=== PATIENT | male | born 1940 | race Hispanic/Latino ===

== ENCOUNTER 2016-07-03 11:54 | Inpatient (IN) | payer MEDICARE, BC ==
[2016-07-03] MEDS ORDERED: Cefepime IV 2 gm in NS 2 GM/100 ML BAG IVPB STA (12:14)
[2016-07-03] MEDS ORDERED: Vancomycin 1gm in NS 250ml 1 GM/250 ML BAG IVPB STA (12:14)
[2016-07-03] MEDS ORDERED: levoFLOXacin 750 mg in D5W 750 MG/150 ML BAG IVPB STA (12:14)
--- NOTE | 2016-07-03 12:36 | RAD ---
HISTORY: cough COMPARISON: 02/01/2014 FINDINGS: LUNGS: No active pulmonary disease. PLEURA: No significant pleural effusion identified, no pneumothorax apparent. CARDIOVASCULAR: Moderate cardiomegaly OSSEOUS STRUCTURES: Sternal wires VISUALIZED UPPER ABDOMEN: Normal. OTHER FINDINGS: None. IMPRESSION: No active disease.
[2016-07-03 12:38] LABS: ADD MANUAL DIFF? NO
--- NOTE | 2016-07-03 12:40 | ED PDOC ---
Arrival/HPI - General Chief Complaint: Shortness Of Breath Time Seen by Provider: 07/03/16 12:06 Historian: Patient - History of Present Illness Narrative History of Present Illness (Text): 07/03/16 12:25 Be Downing is a 76 year old male, whose past medical history includes COPD, Hypotension, CAD, and pneumonia, who presents to the emergency department complaining of coughing, itchy throat, and chest congestion since yesterday. Patient's states that patient has had these same symptoms multiple times these last few months. Patient went to an urgent care center and was given a Z- geovanna. Patient saw Dr. Jeff Otero, who provided different antibiotics. Both medications brought little relief. Symptoms have been intermittent for a few months but symptoms came back yesterday. Patient notes that he took Tylenol early this morning which brought some relief. At present, patient is febrile and continues to feel congested. Patient denies any pain or any other complaint at this time. Patient's notes that patient's blood pressure is always low at baseline. PMD: Dr. Moura General Counselor: Dr. Lee Time/Duration: 24 hours Symptom Onset: Gradual Symptom Course: Worsening Severity Level: Mild Activities at Onset: Light Context: Home Past Medical History - Provider Review Nursing Documentation Reviewed: Yes - Cardiac Hx Hypertension: Yes - Pulmonary Hx Chronic Obstructive Pulmonary Disease (COPD): Yes - Neurological Hx Neurological Disorder: No Hx Paralysis: No - HEENT Hx HEENT Disorder: No - Renal Hx Renal Disorder: No - Endocrine/Metabolic Hx Diabetes Mellitus Type 2: Yes Other/Comment: Neuropathy - Hematological/Oncological Hx Blood Transfusions: Yes (1986) Hx Blood Transfusion Reaction: No - Integumentary Hx Dermatological Disorder: Yes (LESION LEFT TEMPORAL AREA) - Musculoskeletal/Rheumatological Hx Musculoskeletal Disorders: Yes (LOWER BACK PINCHED NERVE) - Gastrointestinal Hx Gastrointestinal Disorders: No - Genitourinary/Gynecological Hx Prostate Problems: Yes - Psychiatric Hx Psychophysiologic Disorder: No Hx Emotional Abuse: No Hx Physical Abuse: No Hx Substance Use: No - Surgical History Hx Cholecystectomy: Yes Hx Coronary Artery Bypass Graft: Yes Hx Open Heart Surgery: Yes - Anesthesia Hx Anesthesia: Yes - Suicidal Assessment Feels Threatened In Home Enviroment: No Family/Social History - Physician Review Nursing Documentation Reviewed: Yes Family/Social History: No Known Family HX Smoking Status: Never Smoked Hx Alcohol Use: No Hx Substance Use: No Allergies/Home Meds Allergies/Adverse Reactions: Allergies No Known Allergies Allergy (Verified 07/03/16 11:57) Home Medications: Home Meds Medication Instructions Recorded Confirmed Atorvastatin [Lipitor] 80 mg PO QPM 02/01/14 07/03/16 Aspirin [Ecotrin] 81 mg PO DAILY 05/19/15 07/03/16 Atenolol [Tenormin] 1 tab PO HS 05/19/15 07/03/16 Atenolol [Tenormin] 50 mg PO QAM 05/19/15 07/03/16 DULoxetine [Cymbalta] 30 mg PO DAILY 05/19/15 07/03/16 Glimepiride 1 mg PO DAILY PRN 05/19/15 07/03/16 Isosorbide Mononitrate [Imdur] 60 mg PO QAM 05/19/15 07/03/16 Saxagliptin HCl/Metformin HCl 1 tab PO DAILY 05/19/15 07/03/16 [Kombiglyze Xr 2.5-1,000 mg Tab] Telmisartan [Micardis] 80 mg PO QAM 05/19/15 07/03/16 Review of Systems - Physician Review All systems were reviewed & negative as marked: Yes - Review of Systems Constitutional: absent: Night Sweats Eyes: absent: Vision Changes ENT: Sinus Congestion. absent: Hearing Changes Respiratory: Cough Cardiovascular: absent: Chest Pain Gastrointestinal: absent: Abdominal Pain Genitourinary Male: absent: Urinary Output Changes Musculoskeletal: absent: Back Pain, Neck Pain Skin: absent: Rash, Pruritis Neurological: absent: Headache, Dizziness Endocrine: absent: Polyuria Hemo/Lymphatic: absent: Easy Bleeding Psychiatric: absent: Depression Physical Exam - Physical Exam Narrative Physical Exam (Text): Constitutional: No acute distress. Head: Normocephalic. Atraumatic. Eyes: PERRL. ENT: Moist mucous membranes. Neck: Supple. Cardiovascular: Regular rate. Chest: No tenderness. Respiratory: Bibasilar rhonchi. GI: Soft. Nontender. Nondistended. Back: No CVA tenderness. Musculoskeletal: No tenderness or swelling of extremities. Skin: No rash. Neurologic: Alert, no focal deficit. Vital Signs Reviewed: Yes Vital Signs Temp Pulse Resp BP Pulse Ox 07/03/16 14:08 89 18 117/48 L 96 07/03/16 13:36 93 H 18 129/52 L 96 07/03/16 13:00 93 H 22 125/54 L 96 07/03/16 12:35 88 24 121/52 L 93 L 07/03/16 12:18 102.8 F H 87 22 115/45 L 93 L 07/03/16 12:14 20 07/03/16 11:58 100.8 F H 75 22 95/47 L 92 L 07/03/16 11:55 100.8 F H 75 22 95/47 L 92 L Temperature: Febrile Blood Pressure: Hypotensive Pulse: Regular Respiratory Rate: Normal Appearance: Positive for: Well-Appearing, Non-Toxic, Comfortable Pain Distress: None Mental Status: Positive for: Alert and Oriented X 3 Medical Decision Making ED Course and Treatment: Impression: 76 year old male complaining of cough and sinus congestion since yesterday presenting with fever, RR 22, and inital blood pressure 90s/50s although not largely different from usual. Plan: -- EKG -- VBG, Blood Culture -- Urinalysis, Urine Culture -- Labs -- Tylenol, Levaquin, Maxipime, Vancomycin, and IV Fluids -- Reassess and disposition Prior Visits: Notes and results from previous visits were reviewed. Patient came to emergency procedure on 02/01/14 for Chest pain for a few hours prior to arriving that day. Patient was admitted to telemetry for further evaluation. EKG: Ordered, reviewed, and independently interpreted the EKG. Rate: 80 BPM Rhythm: NSR Interpretation: LBBB. No concordant ST elevations. Comparison: No change from previous on 02/02/2014 07/03/16 12:35 Chest X-ray: Creator : Aidan Diaz MD FINDINGS: LUNGS:No active pulmonary disease. PLEURA:No significant pleural effusion identified, no pneumothorax apparent. CARDIOVASCULAR:Moderate cardiomegaly OSSEOUS STRUCTURES:Sternal wires VISUALIZED UPPER ABDOMEN:Normal. OTHER FINDINGS:None. IMPRESSION: No active disease. Lactate 2.8, CODE SEPSIS activated. Patient received 30cc/kg bolus, respiratory antibiotics. Dr. Escobar accepts patient to his service. vice president network hand off given. - Lab Interpretations Lab Results: 07/03/16 12:30 07/03/16 12:30 Lab Results 07/03/16 13:00: Urine Color Yellow, Urine Appearance Clear, Urine pH 6.0, Ur Specific [place] 1.010, Urine Protein Negative, Urine Glucose (UA) >=1000, Urine Ketones Negative, Urine Blood Negative, Urine Nitrate Negative, Urine Bilirubin Negative, Urine Urobilinogen 0.2, Ur Leukocyte Esterase Negative 07/03/16 12:30: Chloride 102, Sodium 135, Potassium 4.7, Carbon Dioxide 25, Anion Gap 13, BUN 24 H, Creatinine 0.9, Est GFR ( Amer) > 60, Est GFR ( Non-Af Amer) > 60, Random Glucose 309 H* D, Calcium 8.7, Phosphorus 2.4 L, Magnesium 1.4 L, Total Bilirubin 0.7, AST 24, ALT 35, Alkaline Phosphatase 78, Total Protein 6.3, Albumin 3.5, Globulin 2.8, Albumin/Globulin Ratio 1.3 07/03/16 12:30: pO2 36, VBG pH 7.31 L, VBG pCO2 52.0, VBG HCO3 26.2, VBG Total CO2 27.8, VBG O2 Sat (Calc) 72.3 H, VBG Base Excess -0.7 L, Chloride 104.0, Glucose 321 H, Lactate 2.4 H, FiO2 21 07/03/16 12:30: PT 10.5, INR 0.97, APTT 22.4 L 07/03/16 12:30: WBC 13.8 H D, RBC 4.18, Hgb 12.5 L, Hct 37.3 L, MCV 89.2, MCH 29.9, MCHC 33.5, RDW 13.2, Plt Count 242, MPV 11.4 H, Gran % 90.0 H, Lymph % ( Auto) 3.6 L, [place] % (Auto) 5.4, Eos % (Auto) 0.9 L, Baso % (Auto) 0.1, Gran # 12.41 H, Lymph # 0.5 L, Mckenzie # 0.8 H, Eos # 0.1, Baso # 0.01 - RAD Interpretation Radiology Orders: 07/03/16 12:14 CHEST PORTABLE [RAD] Stat - Medication Orders Current Medication Orders: Discontinued Medications Acetaminophen (Tylenol 325mg Tab) 650 mg PO STAT STA Stop: 07/03/16 12:35 Last Admin: 07/03/16 12:38 Dose: 650 mg Re-Assess: MAR Pain/Vitals Document 07/03/16 13:38 SRE (Rec: 07/03/16 14:07 SRE [id number]) Pain Reassessment Is This A Pain ReAssessment? Yes Sleep Is patient sleeping during reassessment? No Acetaminophen (Tylenol 325mg Tab) Confirm Administered Dose 650 mg .ROUTE .STK- MED ONE Stop: 07/03/16 12:36 Last Admin: 07/03/16 12:39 Dose: 650 mg Comments: duplicate Levofloxacin/Dextrose (Levaquin 750mg) 750 mg in 150 mls @ 100 mls/hr IVPB STAT STA Stop: 07/03/16 13:43 Last Admin: 07/03/16 13:32 Dose: 100 mls/hr Cefepime HCl (Maxipime 2gm) 2 gm in 100 mls @ 100 mls/hr IVPB STAT STA PRN Reason: Protocol Stop: 07/03/16 13:13 Last Admin: 07/03/16 12:31 Dose: 100 mls/hr Sodium Chloride 2,100 ml/ IV (SUPPLIES) 2,100 mls @ 4,164 mls/hr IV ONCE ONE PRN Reason: 60 ML/KG/HR Stop: 07/03/16 12:15 Last Admin: 07/03/16 12:30 Dose: 4,164 mls/hr Vancomycin HCl (Vancomycin 1gm) 1 gm in 250 mls @ 167 mls/hr IVPB STAT STA PRN Reason: Protocol Stop: 07/03/16 13:43 - Scribe Statement The provider has reviewed the documentation as recorded by the Madina Alba Provider Scribe Attestation: All medical record entries made by the Scribgrazyna were at my direction and personally dictated by me. I have reviewed the chart and agree that the record accurately reflects my personal performance of the history, physical exam, medical decision making, and the department course for this patient. I have also personally directed, reviewed, and agree with the discharge instructions and disposition. Disposition/Present on Arrival - Present on Arrival Any Indicators Present on Arrival: No History of DVT/PE: No History of Uncontrolled Diabetes: No Urinary Catheter: No History of Decub. Ulcer: No History Surgical Site Infection Following: Orthopedic Procedures - Disposition Have Diagnosis and Disposition been Completed?: Yes Diagnosis: Sepsis, Respiratory infection Disposition: HOSPITALIZED Disposition Time: 14:00 Patient Plan: Admission, Telemetry Condition: GUARDED
[2016-07-03 12:48] LABS: VENOUS BLOOD GAS BASE EXCESS -0.7 mmol/L (0.0-2.0); VENOUS BLOOD PH 7.31 (7.32-7.43)
[2016-07-03 12:52] LABS: BASO # 0.01 K/mm3 (0.0-2.0); BASO % 0.1 % (0.0-3.0); EOS # 0.1 (0.0-0.7); EOS % 0.9 % (1.5-5.0); GRAN # 12.41 (1.4-6.5); HEMATOCRIT 37.3 % (42.0-52.0); LYMPH # 0.5 (1.2-3.4); LYMPH % 3.6 % (22.0-35.0); MEAN CELL VOLUME 89.2 fL (80.0-105.0); MEAN CORPUSCULAR HEMOGLOBIN 29.9 pg (25.0-35.0); MEAN CORPUSCULAR HGB CONC 33.5 g/dl (31.0-37.0); MEAN PLATELET VOLUME 11.4 fl (7.0-11.0); MONO # 0.8 (0.1-0.6); MONO % 5.4 % (1.0-6.0); PLATELET COUNT 242 10^3/uL (120.0-450.0); RED CELL DISTRIBUTION WIDTH 13.2 % (11.5-14.5); WHITE BLOOD COUNT 13.8 10^3/ul (4.5-11.0)
[2016-07-03 12:56] LABS: ALB/GLOB RATIO 1.3 (1.1-1.8); ALKALINE PHOSPHATASE 78 U/L (38-133); ALT/SGPT 35 U/L (7-56); AST/SGOT 24 U/L (15-59); BILIRUBIN,TOTAL 0.7 mg/dL (0.2-1.3); BLOOD UREA NITROGEN 24 mg/dL (7-21); CALCIUM 8.7 mg/dL (8.4-10.5); CARBON DIOXIDE 25 mmol/L (21-33); CHLORIDE 102 mmol/L (98-107); GFR AFRICAN-AMERICAN > 60; MAGNESIUM 1.4 mg/dL (1.7-2.2); PHOSPHOROUS 2.4 mg/dL (2.5-4.5); POTASSIUM 4.7 mmol/L (3.6-5.0); SODIUM 135 mmol/L (132-148); TOTAL PROTEIN 6.3 g/dL (5.8-8.3)
[2016-07-03 12:58] LABS: INR 0.97 (0.93-1.08); PARTIAL THROMBOPLASTIN TIME 22.4 Seconds (23.7-30.8)
[2016-07-03 13:11] LABS: GLUCOSE,RANDOM 309 mg/dL (70-110)
[2016-07-03 13:51] LABS: URINE BILIRUBIN NEGATIVE (NEGATIVE); URINE BLOOD NEGATIVE (NEGATIVE); URINE GLUCOSE (UA) >=1000 mg/dL (NEGATIVE); URINE KETONE NEGATIVE (NEGATIVE); URINE LEUKOCYTE ESTERASE NEGATIVE Leu/uL (NEGATIVE); URINE PROTEIN NEGATIVE mg/dL (<30 mg/dL); URINE UROBILINOGEN 0.2 E.U./dL (<1 E.U./dL)
[2016-07-03 13:52] LABS: URINE APPEARANCE CLEAR (CLEAR); URINE COLOR YELLOW (YELLOW)
[2016-07-03] MEDS ORDERED: Magnesium Sulfate 2 GM in Sodium Chloride 0.9% 100 ML IV ONE (15:25)
[2016-07-03] MEDS ORDERED: Sodium Chloride 0.9% 100 ML IV SCH ×2 (15:30→15:54)
--- NOTE | 2016-07-03 15:38 | CP.PCM.HP ---
<Steph Esqueda - Last Filed: 07/03/16 15:30> History of Present Illness - History of Present Illness History of Present Illness: CC: I have heaves Patient is a 76 y/o male with PMH of CAD s/p 7 stents, htn, NIDDM2, bph and spinal stenosis presenting with dry heaves. Patient states he has been experiencing dry cough for almost a month. Patient went to urgent care and was given zpack with no relief. Patient then went to PMD, had chest x-ray which revealed diffuse infiltration, patient states he was told to continue zpack. Patient states he continued to have dry cough on/off despite the antibiotics, then today while standing on the street, he felt dry heaves, with foamy discharge.. Patient states he felt itchy in his throat yesterday, as if he was about to come up with a cold, and was feeling congested. PT was taking robittusin with some relief. Patient denies fever, chills, n/v/d. Denies abdominal pain, dyurea, hematuria. Admits to chest pain when he coughs, and admits to shortness of breath.. Denies pillow orthopnea. Denies sore throat or ear ache. In the ER, patient had temp of 102, + leukocytosis, lactic acid of 2.4, code sepsis called. Patient was giving ivf, levaquin and sarmiento cultures sent. PMH: As stated above PSH: cardiac stents, and lap silvana Social; former tobacco smoker, denies alcohol, tobacco and illicit drug use. Works as a street day guard, lives with . Allergy: NKDA. Present on Admission - Present on Admission Any Indicators Present on Admission: Yes History of DVT/PE: No History of Uncontrolled Diabetes: No Urinary Catheter: No Decubitus Ulcer Present: No Review of Systems - Review of Systems All systems: reviewed and no additional remarkable complaints except Review of Systems: As mentioned in hpi. - Constitutional Constitutional: As Per HPI - EENT Eyes: As Per HPI Nose/Mouth/Throat: As Per HPI - Cardiovascular Cardiovascular: As Per HPI - Respiratory Respiratory: As Per HPI - Gastrointestinal Gastrointestinal: As Per HPI - Genitourinary Genitourinary: As Per HPI - Musculoskeletal Musculoskeletal: As Per HPI - Integumentary Integumentary: As Per HPI - Neurological Neurological: As Per HPI - Psychiatric Psychiatric: As Per HPI - Endocrine Endocrine: As Per HPI - Hematologic/Lymphatic Hematologic: As Per HPI Past Patient History - Past Medical History & Family History Past Medical History?: Yes - Past Social History Smoking Status: Former Smoker Alcohol: None Drugs: Denies Home Situation {Lives}: With Family - CARDIAC Hx Hypertension: Yes - PULMONARY Hx Chronic Obstructive Pulmonary Disease (COPD): Yes - NEUROLOGICAL Hx Neurological Disorder: No Hx Paralysis: No - HEENT Hx HEENT Problems: No - RENAL Hx Chronic Kidney Disease: No - ENDOCRINE/METABOLIC Hx Diabetes Mellitus Type 2: Yes Other/Comment: Neuropathy - HEMATOLOGICAL/ONCOLOGICAL Hx Blood Transfusions: Yes (1986) Hx Blood Transfusion Reaction: No - INTEGUMENTARY Hx Dermatological Problems: Yes (LESION LEFT TEMPORAL AREA) - MUSCULOSKELETAL/RHEUMATOLOGICAL Hx Musculoskeletal Disorders: Yes (LOWER BACK PINCHED NERVE) - GASTROINTESTINAL Hx Gastrointestinal Disorders: No - GENITOURINARY/GYNECOLOGICAL Hx Prostate Problems: Yes - PSYCHIATRIC Hx Psychophysiologic Disorder: No Hx Emotional Abuse: No Hx Physical Abuse: No Hx Substance Use: No - SURGICAL HISTORY Hx Cholecystectomy: Yes Hx Coronary Artery Bypass Graft: Yes Hx Open Heart Surgery: Yes - ANESTHESIA Hx Anesthesia: Yes Meds Allergies/Adverse Reactions: Allergies Allergy/AdvReac Type Severity Reaction Status Date / Time No Known Allergies Allergy Verified 07/03/16 15:00 Physical Exam - Constitutional Appears: No Acute Distress Additional comments: + diaphoretic. - Head Exam Head Exam: ATRAUMATIC, NORMAL INSPECTION, NORMOCEPHALIC - Eye Exam Eye Exam: EOMI, Normal appearance, PERRL. absent: Scleral icterus - ENT Exam ENT Exam: Mucous Membranes Moist - Neck Exam Neck exam: Positive for: Normal Inspection - Respiratory Exam Respiratory Exam: Clear to Auscultation Bilateral, Rhonchi (at the bases bilaterally.), NORMAL BREATHING PATTERN. absent: Accessory Muscle Use, Chest Wall Tenderness, Decreased Breath Sounds, Prolonged Expiratory Phase, Rales, Wheezes, Respiratory Distress, Stridor - Cardiovascular Exam Cardiovascular Exam: REGULAR RHYTHM, RRR, +S1, +S2. absent: Gallop, Irregular Rhythm, JVD, Rubs, Systolic Murmur - GI/Abdominal Exam GI & Abdominal Exam: Normal Bowel Sounds, Soft. absent: Distended, Firm, Guarding, Rigid, Tenderness - Extremities Exam Extremities exam: Positive for: normal inspection - Back Exam Back exam: NORMAL INSPECTION - Neurological Exam Neurological exam: Alert, Oriented x3 - Psychiatric Exam Psychiatric exam: Normal Affect, Normal Mood - Skin Skin Exam: Diaphoretic, Dry, Intact, Normal Color, Warm Results - Vital Signs Recent Vital Signs: Last Vital Signs Temp 99 F 07/03/16 15:00 Pulse 87 07/03/16 15:00 Resp 24 07/03/16 15:00 BP 132/59 L 07/03/16 15:00 Pulse Ox 95 07/03/16 15:00 - Labs Result Diagrams: 07/03/16 12:30 07/03/16 12:30 Labs: Laboratory Results - last 24 hr 07/03/16 07/03/16 07/03/16 12:30 12:30 12:30 WBC 13.8 H D RBC 4.18 Hgb 12.5 L Hct 37.3 L MCV 89.2 MCH 29.9 MCHC 33.5 RDW 13.2 Plt Count 242 MPV 11.4 H Gran % 90.0 H Lymph % (Auto) 3.6 L [place] % (Auto) 5.4 Eos % (Auto) 0.9 L Baso % (Auto) 0.1 Gran # 12.41 H Lymph # 0.5 L [place] # 0.8 H Eos # 0.1 Baso # 0.01 PT 10.5 INR 0.97 APTT 22.4 L pO2 36 VBG pH 7.31 L VBG pCO2 52.0 VBG HCO3 26.2 VBG Total CO2 27.8 VBG O2 Sat (Calc) 72.3 H VBG Base Excess -0.7 L Chloride 104.0 Glucose 321 H Lactate 2.4 H FiO2 21 Sodium Potassium Carbon Dioxide Anion Gap BUN Creatinine Est GFR ( Amer) Est GFR (Non-Af Amer) Random Glucose Calcium Phosphorus Magnesium Total Bilirubin AST ALT Alkaline Phosphatase Total Protein Albumin Globulin Albumin/Globulin Ratio Urine Color Urine Appearance Urine pH Ur Specific [place] Urine Protein Urine Glucose (UA) Urine Ketones Urine Blood Urine Nitrate Urine Bilirubin Urine Urobilinogen Ur Leukocyte Esterase 07/03/16 07/03/16 12:30 13:00 WBC RBC Hgb Hct MCV MCH MCHC RDW Plt Count MPV Gran % Lymph % (Auto) [place] % (Auto) Eos % (Auto) Baso % (Auto) Gran # Lymph # [place] # Eos # Baso # PT INR APTT pO2 VBG pH VBG pCO2 VBG HCO3 VBG Total CO2 VBG O2 Sat (Calc) VBG Base Excess Chloride 102 Glucose Lactate FiO2 Sodium 135 Potassium 4.7 Carbon Dioxide 25 Anion Gap 13 BUN 24 H Creatinine 0.9 Est GFR ( Amer) > 60 Est GFR (Non-Af Amer) > 60 Random Glucose 309 H* D Calcium 8.7 Phosphorus 2.4 L Magnesium 1.4 L Total Bilirubin 0.7 AST 24 ALT 35 Alkaline Phosphatase 78 Total Protein 6.3 Albumin 3.5 Globulin 2.8 Albumin/Globulin Ratio 1.3 Urine Color Yellow Urine Appearance Clear Urine pH 6.[address] [place] 1.010 Urine Protein Negative Urine Glucose (UA) >=1000 Urine Ketones Negative Urine Blood Negative Urine Nitrate Negative Urine Bilirubin Negative Urine Urobilinogen 0.2 Ur Leukocyte Esterase Negative Assessment & Plan - Assessment and Plan (Free Text) Assessment: Patient is a 76 y/o male with PMH of CAD s/p 7 stents, htn, NIDDM2, bph and spinal stenosis presenting with dry heaves and dry cough for almost a month. Patient is being admitted with sepsis. Plan: 1) Sepsis with CAP as the source - chest x-ray read as no active disease, however there are bilateral almost patchy infiltrations - + leukocytosis, febrile , with lactic acid of 2.4 - will trend lactic acid - will obtain procal, urine legionella, influenza AB, and mycoplasma - bcx and ucx sent - s/p levaquin and vanco in the ED - will continue Levaquin daily - duoneb standing dose and prn - NS@100 cc/hr. - tessalon pearles and robitussin prn - pulm and ID consult - will f/u with ap/lat chest x-ray in the AM 2) Hypophosphatemia and hypomagnesemia - will replete - will continue to monitor 3) CAD with stents - continue Lipitor, atenolol, asa 4) NIDDM - ISS - Carb controlled diet - accu checks ACHS. - hold po meds 5) spinal stenosis - continue duloxetine 6) htn- continue hctz and losartan 7) DVT and gi prophylaxis: protonix, and heparin sc. Patient seen, examined, case discussed with Dr Escobar. - Date & Time Date: 07/03/16 Time: 14:40 <James Escobar - Last Filed: 07/21/16 18:50> Results - Vital Signs Recent Vital Signs: Last Vital Signs Temp 98 F 07/05/16 07:50 Pulse 80 07/05/16 09:21 Resp 18 07/05/16 07:50 BP 146/77 07/05/16 09:21 Pulse Ox 96 07/05/16 07:50 - Labs Result Diagrams: 07/05/16 07:30 07/05/16 07:30 Attending/Attestation - Attestation I have personally seen and examined this patient.: Yes I have fully participated in the care of the patient.: Yes I have reviewed all pertinent clinical information: Yes Notes (Text): 07/21/16 18:50 Medical record note made by the resident after discussion with my direction and input after the patient was personally seen and examined by me. I have reviewed the chart and agree that the record accurately reflects by personal performance of the history, physical exam, data review, and medical decision-making, in the course for the patient. I have also personally directed the plan of care.
[2016-07-03] MEDS ORDERED: Albuterol-Ipratrop 3 mg / 0.5 (3 ml) UD IH PRN (15:42)
[2016-07-03] MEDS: Insulin Lispro (humaLOG) LOW Coverage SC SCH ×2 (17:08→21:57)
[2016-07-03] MEDS ORDERED: Pneumococcal 23-Valent Vaccine IM ONE (17:40)
[2016-07-03 17:41] VITALS: BMI 26.2
[2016-07-03] MEDS: Potassium & Sodium Phosphate PO SCH (17:42)
[2016-07-03 18:40] LABS: VENOUS BLOOD GAS BASE EXCESS 0.2 mmol/L (0.0-2.0); VENOUS BLOOD PH 7.33 (7.32-7.43)
[2016-07-03] MEDS: Sodium Chloride 0.9% 1,000 ML IV SCH (20:00)
[2016-07-03] MEDS: Albuterol-Ipratrop 3 mg / 0.5 (3 ml) UD IH SCH (20:28)
[2016-07-03] MEDS: guaiFENesin DM 100 mg-10 mg/5 ml UD PO PRN (22:05)
[2016-07-04] MEDS: Albuterol-Ipratrop 3 mg / 0.5 (3 ml) UD IH SCH ×7 (00:45→23:08)
[2016-07-04] MEDS: Sodium Chloride 0.9% 1,000 ML IV SCH ×2 (04:42→18:53)
--- NOTE | 2016-07-04 05:06 | PCM.SEPTIC ---
<Milagro Wakefield - Last Filed: 07/04/16 05:04> Sepsis Progress Note - Reassessment Type Date of Evaluation: 07/03/16 Time of Evaluation: 19:20 Reassessment Type: Non-invasive reassessment - Non Invasive Reassessment Were the most recent vital sign reviewed: Yes Vital Sign (Latest): Temp Pulse Resp BP Pulse Ox 99 F 69 18 130/62 95 07/04/16 00:01 07/04/16 02:00 07/04/16 00:01 07/04/16 00:01 07/04/16 00:01 Cardiovascular: Yes: Regular Rate, Rhythm. No: Gallop, Murmur, Friction Rub Respiratory: Yes: Rhonchi. No: Wheezing, Respiratory Distress Capillary Refill: Normal (Less than 2 sec) Skin: Warm, Dry <James Escobar - Last Filed: 07/21/16 18:53> Sepsis Progress Note - Non Invasive Reassessment Vital Sign (Latest): Temp Pulse Resp BP Pulse Ox 98 F 80 18 146/77 96 07/05/16 07:50 07/05/16 09:21 07/05/16 07:50 07/05/16 09:21 07/05/16 07:50 Attending/Attestation - Attestation I have personally seen and examined this patient.: Yes I have fully participated in the care of the patient.: Yes I have reviewed all pertinent clinical information, including history, physical exam and plan: Yes Notes (Text): 07/21/16 18:53 Medical record note made by the resident after discussion with my direction and input after the patient was personally seen and examined by me. I have reviewed the chart and agree that the record accurately reflects by personal performance of the history, physical exam, data review, and medical decision-making, in the course for the patient. I have also personally directed the plan of care.
[2016-07-04] MEDS: Pantoprazole 40 mg EC Tab PO SCH (05:42)
[2016-07-04] MEDS: Cefepime IV 2 gm in NS 2 GM/100 ML BAG IVPB SCH ×3 (06:56→21:55)
[2016-07-04] MEDS: Budesonide 0.5 mg/2 ml Inhal Susp UD IH SCH ×2 (07:43→19:58)
[2016-07-04 07:44] LABS: ADD MANUAL DIFF? NO
[2016-07-04 07:47] LABS: BASO # 0.02 K/mm3 (0.0-2.0); BASO % 0.3 % (0.0-3.0); EOS # 0.2 (0.0-0.7); GRAN # 5.64 (1.4-6.5); GRAN % 71.2 % (50.0-68.0); HEMATOCRIT 36.6 % (42.0-52.0); LYMPH # 1.4 (1.2-3.4); LYMPH % 17.2 % (22.0-35.0); MEAN CELL VOLUME 89.1 fL (80.0-105.0); MEAN CORPUSCULAR HEMOGLOBIN 29.4 pg (25.0-35.0); MEAN CORPUSCULAR HGB CONC 33.1 g/dl (31.0-37.0); MEAN PLATELET VOLUME 11.1 fl (7.0-11.0); MONO # 0.7 (0.1-0.6); MONO % 8.3 % (1.0-6.0); PLATELET COUNT 189 10^3/uL (120.0-450.0); RED CELL DISTRIBUTION WIDTH 13.5 % (11.5-14.5); WHITE BLOOD COUNT 7.9 10^3/ul (4.5-11.0)
[2016-07-04 07:57] LABS: BLOOD UREA NITROGEN 12 mg/dL (7-21); CALCIUM 8.6 mg/dL (8.4-10.5); CARBON DIOXIDE 26 mmol/L (21-33); CHLORIDE 107 mmol/L (95-110); GFR AFRICAN-AMERICAN > 60; GLUCOSE,RANDOM 164 mg/dL (70-110); MAGNESIUM 1.9 mg/dL (1.7-2.2); PHOSPHOROUS 2.7 mg/dL (2.5-4.5); POTASSIUM 3.6 mmol/L (3.6-5.0); SODIUM 139 mmol/L (132-148)
[2016-07-04] MEDS: Vancomycin 1gm in NS 250ml 1 GM/250 ML BAG IVPB SCH ×2 (08:38→18:50)
--- NOTE | 2016-07-04 08:43 | CON ---
DATE: 07/04/2016 PULMONARY CONSULTATION REASON FOR CONSULTATION: Chronic obstructive pulmonary disease. REFERRING PHYSICIAN: James Escobar MD. HISTORY OF PRESENT ILLNESS: The patient is a 76-year-old male with past medical history significant for chronic obstructive pulmonary disease, extensive coronary artery disease, status post multiple stents, hypertension, diabetes mellitus, who presents to [facility] with main complaints of progressive dyspnea on exertion and cough for the past week. The patient is not short of breath at rest. The patient is not coughing up sputum. There is no history of chest pain, coughing up of blood, or chest pain - made worse with deep respirations. The patient did present to the Emergency Room with fevers. No history of chills or infectious exposure. No history of night sweats, weight loss, or appetite change prior to the above events. No history of leg or calf pains. No history of syncope or diaphoresis. No history of recent travel or trauma. REVIEW OF SYSTEMS: The patient did have some nausea and dry heaves at home. No abdominal pain, no diarrhea. No acute urinary symptoms. No new neurological or musculoskeletal complaints. The rest of the review of systems is negative. ALLERGIES: No known allergies. SOCIAL HISTORY: Positive for tobacco, negative for alcohol. FAMILY HISTORY: No inheritable diseases. HOME MEDICATIONS: Include Micardis, Imdur, glimepiride, Cymbalta, Lipitor, Tenormin, Ecotrin. PHYSICAL EXAMINATION: GENERAL: The patient appears comfortable at rest. He is not short of breath. VITAL SIGNS: Temperature is 98.7, pulse 80, respirations 18/20, blood pressure 123/58. Oxygen saturation on nasal cannula is 95%. HEENT: Normocephalic, atraumatic. NECK: No JVD. CARDIOVASCULAR: Systolic ejection murmur at the lower left sternal border. No S3 gallop. LUNGS: Decreased breath sounds at the bases. Mild rhonchi and wheezing are appreciated bilaterally. EXTREMITIES: No clubbing, cyanosis, or edema. Calves are nontender to palpation. GASTROINTESTINAL: Abdomen is soft, nontender, nondistended. Bowel sounds are positive. SKIN: No acute rash. NEUROLOGIC: Limited at the present time. PERTINENT LABORATORY DATA: Chest x-ray was done yesterday as a portable exam. There is no active disease noted. CBC: White count 13.8, hemoglobin 12.5, hematocrit 37.3, platelets of 242. Complete metabolic profile: BUN 24, glucose 309, phosphorus 2.4, magnesium 1.4. The rest of the metabolic profile is within normal limits. Procalcitonin done yesterday - negative, less than 0.05. IMPRESSION: 1. Acute bronchitis. 2. Chronic obstructive pulmonary disease. 3. Sepsis syndrome, rule out viral etiology. 4. Extensive coronary artery disease. 5. Mild anemia. PLAN: The patient presents to [facility] with a 1-week history of worsening pulmonary symptoms. I did review the chest x-ray as above. There is no acute disease noted. A repeat chest x-ray - PA and lateral - has been ordered for this morning. I will check that when feasible. The patient did present to the hospital with fevers. Infectious disease evaluation with Dr. [place] has been ordered. The patient is on antibiotic therapy. On physical exam, the patient is in mild to moderate bronchospasm. I will continue with the current nebulizer treatments and add intravenous steroids this morning. I will also add inhaled Pulmicort. The patient does feel better this morning - compared to the past few mornings. He is clinically improved. Additional pulmonary intervention will be based on the above results, as well as the clinical status of the patient. I will discuss the above with the attending physician this morning. Thank you very much for this pulmonary consultation. Ilia Singh MD cc: [id number] TT: 07/04/2016 08:42:19 Confirmation # [id number] Dictation # [id number] jn TANNER
[2016-07-04] MEDS: Potassium & Sodium Phosphate PO SCH ×2 (09:04→18:53)
[2016-07-04] MEDS: Insulin Lispro (humaLOG) LOW Coverage SC SCH ×4 (09:05→21:58)
[2016-07-04] MEDS: MethylPREDNISolone 40 mg Vial IVP SCH ×2 (09:06→21:19)
--- NOTE | 2016-07-04 09:15 | CP.PCM.PN ---
<Steph Esqueda - Last Filed: 07/04/16 15:33> Subjective - Date & Time of Evaluation Date of Evaluation: 07/04/16 Time of Evaluation: 08:40 - Subjective Subjective: Medicine progress note for Dr Moura and Dr Escobar Patient with no acute events overnight. Denies cp, sob, headache or dizziness. Reports the cough has improved, and he's feeling better overall. Denies fever or chills. Denies n/v/d. Objective - Vital Signs/Intake and Output Vital Signs (last 24 hours): Temp Pulse Resp BP Pulse Ox 98.7 F 84 20 133/57 L 95 07/04/16 06:00 07/04/16 09:05 07/04/16 06:00 07/04/16 09:05 07/04/16 00:01 Intake and Output: 07/04/16 07/04/16 06:59 18:59 Intake Total 1440 Output Total 1000 Balance 440 - Medications Medications: Current Medications Acetaminophen (Tylenol 325mg Tab) 650 mg PO Q4 PRN PRN Reason: Fever >100.4 F Albuterol/Ipratropium (Duoneb 3 Mg/0.5 Mg (3 Ml) Ud) 3 ml IH [id number] [facility] Last Admin: 07/04/16 07:43 Dose: 3 ml Albuterol/Ipratropium (Duoneb 3 Mg/0.5 Mg (3 Ml) Ud) 3 ml IH Q2H PRN PRN Reason: Shortness of Breath Aspirin (Ecotrin) 81 mg PO DAILY [facility] Last Admin: 07/04/16 09:05 Dose: 81 mg Atenolol (Tenormin) 50 mg PO QAM [facility] Last Admin: 07/04/16 09:05 Dose: 50 mg Atenolol (Tenormin) 50 mg PO HS [facility] Last Admin: 07/03/16 22:01 Dose: 50 mg Atorvastatin Calcium (Lipitor) 80 mg PO QPM [facility] Last Admin: 07/03/16 17:51 Dose: 80 mg Benzonatate (Tessalon Perles) 100 mg PO TID [facility] Last Admin: 07/04/16 09:05 Dose: 100 mg Budesonide (Pulmicort Respules) 0.5 mg IH [id number] [facility] Last Admin: 07/04/16 07:43 Dose: 0.5 mg Duloxetine HCl (Cymbalta) 30 mg PO DAILY [facility] Last Admin: 07/04/16 09:05 Dose: 30 mg Guaifenesin/Dextromethorphan (Robitussin Dm) 5 ml PO Q4H PRN PRN Reason: Cough Last Admin: 07/03/16 22:05 Dose: 5 ml Heparin Sodium (Porcine) (Heparin) 5,000 units SC Q8 [facility] PRN Reason: Protocol Last Admin: 07/04/16 05:41 Dose: 5,000 units Hydrochlorothiazide (Microzide) 12.5 mg PO STAT [facility] Last Admin: 07/03/16 17:46 Dose: 12.5 mg Sodium Chloride (Sodium Chloride 0.9%) 1,000 mls @ 100 mls/hr IV .Q10H [facility] Last Admin: 07/04/16 04:42 Dose: 100 mls/hr Cefepime HCl (Maxipime 2gm) 2 gm in 100 mls @ 100 mls/hr IVPB Q8 [facility] PRN Reason: Protocol Stop: 07/09/16 06:46 Last Admin: 07/04/16 06:56 Dose: 100 mls/hr Vancomycin HCl (Vancomycin 1gm) 1 gm in 250 mls @ 167 mls/hr IVPB Q12H [facility] PRN Reason: Protocol Last Admin: 07/04/16 08:38 Dose: 167 mls/hr Insulin Human Lispro (Humalog Low) 0 units SC ACHS [facility] PRN Reason: Protocol Last Admin: 07/04/16 09:05 Dose: 1 units Isosorbide Mononitrate (Imdur) 60 mg PO QAM [facility] Last Admin: 07/04/16 09:04 Dose: 60 mg Losartan Potassium (Cozaar) 50 mg PO STAT [facility] Last Admin: 07/04/16 09:04 Dose: 50 mg Methylprednisolone (Solu-Medrol) 30 mg IVP Q12 [facility] Last Admin: 07/04/16 09:06 Dose: 30 mg Ondansetron HCl (Zofran Inj) 4 mg IVP STAT PRN PRN Reason: Nausea/Vomiting Pantoprazole Sodium (Protonix Ec Tab) 40 mg PO 0630 [facility] Last Admin: 07/04/16 05:42 Dose: 40 mg Potassium Phos/Sodium Phos (Neutra-Phos) 1 pkt PO BID [facility] Stop: 07/05/16 18:01 Last Admin: 07/04/16 09:04 Dose: 1 pkt - Labs Labs: 07/04/16 07:30 07/04/16 07:30 PT 10.5 Seconds (9.9-11.8) 07/03/16 12:30 INR 0.97 (0.93-1.08) 07/03/16 12:30 APTT 22.4 Seconds (23.7-30.8) L 07/03/16 12:30 - Constitutional Appears: No Acute Distress - Head Exam Head Exam: ATRAUMATIC, NORMAL INSPECTION, NORMOCEPHALIC - Eye Exam Eye Exam: Normal appearance. absent: Scleral icterus - ENT Exam ENT Exam: Mucous Membranes Moist - Neck Exam Neck Exam: Normal Inspection - Respiratory Exam Respiratory Exam: Clear to Ausculation Bilateral, NORMAL BREATHING PATTERN. absent: Rales, Rhonchi, Wheezes, Respiratory Distress, Stridor - Cardiovascular Exam Cardiovascular Exam: REGULAR RHYTHM, +S1, +S2. absent: Murmur - GI/Abdominal Exam GI & Abdominal Exam: Soft, Normal Bowel Sounds. absent: Distended, Firm, Guarding, Rigid, Tenderness - Extremities Exam Extremities Exam: Normal Inspection - Back Exam Back Exam: NORMAL INSPECTION - Neurological Exam Neurological Exam: Alert, Awake, Oriented x3 - Psychiatric Exam Psychiatric exam: Normal Affect, Normal Mood - Skin Skin Exam: Dry, Intact, Normal Color, Warm Assessment and Plan - Assessment and Plan (Free Text) Assessment: Patient is a 76 y/o with pmh of CAD s/p 7 stents, htn, NIDDM2, bph and spinal stenosis presented to the ED with dry cough and heaves, and was admitted with sepsis with HAP as the possible source. Plan: 1) Sepsis with HAP as the possible source - CT chest with b/l lower lobe consolidation - wbc trended down, fever resolved, procal low - Lactic acid trended down, will repeat lactic acid this am. - ID and pulm following, rec appreciated - ucx with no growth, bcx pending - will continue cefepime, doxy and vanco - continue duoneb prn and standing dose, and pulmocort. 2) Hypophosphatemia and hypomagnesemia- resolved, will continue to monitor. 3) CAD with stents - continue Lipitor, atenolol, asa 4) NIDDM - ISS - Carb controlled diet - accu checks ACHS. - hold po meds 5) spinal stenosis - continue duloxetine 6) htn- continue hctz and losartan 7) DVT and gi prophylaxis: protonix, and heparin sc. Patient seen, examined, case discussed with Dr Escobar. <James Escobar - Last Filed: 07/21/16 18:56> Objective - Vital Signs/Intake and Output Vital Signs (last 24 hours): Temp Pulse Resp BP Pulse Ox 98 F 80 18 146/77 96 07/05/16 07:50 07/05/16 09:21 07/05/16 07:50 07/05/16 09:21 07/05/16 07:50 - Labs Labs: 07/05/16 07:30 07/05/16 07:30 PT 10.5 Seconds (9.9-11.8) 07/03/16 12:30 INR 0.97 (0.93-1.08) 07/03/16 12:30 APTT 22.4 Seconds (23.7-30.8) L 07/03/16 12:30 Attending/Attestation - Attestation I have personally seen and examined this patient.: Yes I have fully participated in the care of the patient.: Yes I have reviewed all pertinent clinical information, including history, physical exam and plan: Yes Notes (Text): 07/21/16 18:56 Medical record note made by the resident after discussion with my direction and input after the patient was personally seen and examined by me. I have reviewed the chart and agree that the record accurately reflects by personal performance of the history, physical exam, data review, and medical decision-making, in the course for the patient. I have also personally directed the plan of care.
[2016-07-04] MEDS ORDERED: levoFLOXacin 750 mg in D5W 150 ML BAG IVPB SCH (10:00)
[2016-07-04] MEDS ORDERED: Non Formulary Medication (Telmisartan [Micardis] 80 MG) PO SCH (10:00)
--- NOTE | 2016-07-04 10:02 | CT ---
PROCEDURE: CT Chest without contrast HISTORY: rule out pneumonia COMPARISON: 02/01/2014 TECHNIQUE: Contiguous axial images were obtained through the chest without intravenous contrast enhancement. Sagittal and coronal reconstructions were performed. Radiation dose (DLP): 473 mGy-cm. This CT exam was performed using one or more of the following dose reduction techniques: Automated exposure control, adjustment of the mA and/or kV according to patient size, and/or use of iterative reconstruction technique. FINDINGS: LUNGS: Small areas of subsegmental consolidation can be seen in both lung bases. These could represent areas of pneumonia versus atelectasis. MEDIASTINUM: Unremarkable thoracic aorta. No aneurysm. Normal sized heart. Main pulmonary artery unremarkable. No vascular congestion. No lymphadenopathy. PLEURA: No pleural fluid. No pneumothorax. BONES: No fracture. No destructive lesion. Sternal wires are seen UPPER ABDOMEN: Grossly unremarkable. OTHER FINDINGS: None. IMPRESSION: Small areas of subsegmental consolidation can be seen in both lung bases. These could represent areas of pneumonia versus atelectasis.
--- NOTE | 2016-07-04 11:57 | CP.PCM.CON ---
History of Present Illness - History of Present Illness History of Present Illness: 76 year old male with PMH of HTN, DM, CAD S/P PCI, benign prostatic hyperplasia , S/P laparoscopic cholecystectomy, history of spinal stenosis was brought in to [facility] because of nausea and retching, associated with continued shortness of breath and cough with some whitish phlegm. As per patient , he has been having the cough for over a month now and has been treated multiple times with steroids, inhalers and antibiotics (ie. Z-geovanna) with some relief but then reverts back to the dyspnea and cough. The patient denies headache or dizziness, no chest pain, no abdominal pain, no diarrhea, no dysuria , no blurring of vision, no sore throat, no rhinorrhea. In the ED, the patient was noted to have fever with max temp. of 102.8 F. Infectious diseases consult is requested to further evaluate and manage.Allergy: NKDA. Review of Systems - Review of Systems All systems: reviewed and no additional remarkable complaints except (as per HPI ) Past Patient History - Past Medical History & Family History Past Medical History?: Yes - Past Social History Smoking Status: Former Smoker Alcohol: None Drugs: Denies Home Situation {Lives}: With Family - CARDIAC Hx Hypertension: Yes - PULMONARY Hx Chronic Obstructive Pulmonary Disease (COPD): Yes - NEUROLOGICAL Hx Neurological Disorder: No Hx Paralysis: No - HEENT Hx HEENT Problems: No - RENAL Hx Chronic Kidney Disease: No - ENDOCRINE/METABOLIC Hx Diabetes Mellitus Type 2: Yes Other/Comment: Neuropathy - HEMATOLOGICAL/ONCOLOGICAL Hx Blood Transfusions: Yes (1986) Hx Blood Transfusion Reaction: No - INTEGUMENTARY Hx Dermatological Problems: Yes (LESION LEFT TEMPORAL AREA) - MUSCULOSKELETAL/RHEUMATOLOGICAL Hx Musculoskeletal Disorders: Yes (LOWER BACK PINCHED NERVE) - GASTROINTESTINAL Hx Gastrointestinal Disorders: No - GENITOURINARY/GYNECOLOGICAL Hx Prostate Problems: Yes - PSYCHIATRIC Hx Psychophysiologic Disorder: No Hx Emotional Abuse: No Hx Physical Abuse: No Hx Substance Use: No - SURGICAL HISTORY Hx Cholecystectomy: Yes Hx Coronary Artery Bypass Graft: Yes Hx Open Heart Surgery: Yes - ANESTHESIA Hx Anesthesia: Yes Meds Allergies/Adverse Reactions: Allergies Allergy/AdvReac Type Severity Reaction Status Date / Time No Known Allergies Allergy Verified 07/03/16 15:00 - Medications Medications: Current Medications Acetaminophen (Tylenol 325mg Tab) 650 mg PO Q4 PRN PRN Reason: Fever >100.4 F Albuterol/Ipratropium (Duoneb 3 Mg/0.5 Mg (3 Ml) Ud) 3 ml IH [id number] [facility] Last Admin: 07/04/16 04:30 Dose: 3 ml Albuterol/Ipratropium (Duoneb 3 Mg/0.5 Mg (3 Ml) Ud) 3 ml IH Q2H PRN PRN Reason: Shortness of Breath Aspirin (Ecotrin) 81 mg PO DAILY [facility] Last Admin: 07/03/16 17:46 Dose: 81 mg Atenolol (Tenormin) 50 mg PO QAM [facility] Atenolol (Tenormin) 50 mg PO HS [facility] Last Admin: 07/03/16 22:01 Dose: 50 mg Atorvastatin Calcium (Lipitor) 80 mg PO QPM [facility] Last Admin: 07/03/16 17:51 Dose: 80 mg Benzonatate (Tessalon Perles) 100 mg PO TID [facility] Last Admin: 07/03/16 17:43 Dose: 100 mg Budesonide (Pulmicort Respules) 0.5 mg IH [id number] [facility] Duloxetine HCl (Cymbalta) 30 mg PO DAILY [facility] Last Admin: 07/03/16 17:46 Dose: 30 mg Guaifenesin/Dextromethorphan (Robitussin Dm) 5 ml PO Q4H PRN PRN Reason: Cough Last Admin: 07/03/16 22:05 Dose: 5 ml Heparin Sodium (Porcine) (Heparin) 5,000 units SC Q8 [facility] PRN Reason: Protocol Last Admin: 07/04/16 05:41 Dose: 5,000 units Hydrochlorothiazide (Microzide) 12.5 mg PO STAT [facility] Last Admin: 07/03/16 17:46 Dose: 12.5 mg Sodium Chloride (Sodium Chloride 0.9%) 1,000 mls @ 100 mls/hr IV .Q10H [facility] Last Admin: 07/04/16 04:42 Dose: 100 mls/hr Insulin Human Lispro (Humalog Low) 0 units SC ACHS [facility] PRN Reason: Protocol Last Admin: 07/03/16 21:57 Dose: Not Given Isosorbide Mononitrate (Imdur) 60 mg PO QAM [facility] Levofloxacin/Dextrose (Levaquin 750mg) 750 mg IVPB Q24H [facility] Losartan Potassium (Cozaar) 50 mg PO STAT [facility] Methylprednisolone (Solu-Medrol) 30 mg IVP Q12 [facility] Ondansetron HCl (Zofran Inj) 4 mg IVP STAT PRN PRN Reason: Nausea/Vomiting Pantoprazole Sodium (Protonix Ec Tab) 40 mg PO 0630 [facility] Last Admin: 07/04/16 05:42 Dose: 40 mg Potassium Phos/Sodium Phos (Neutra-Phos) 1 pkt PO BID [facility] Stop: 07/05/16 18:01 Last Admin: 07/03/16 17:42 Dose: 1 pkt Physical Exam - Constitutional Appears: Non-toxic, No Acute Distress - Head Exam Head Exam: NORMAL INSPECTION - ENT Exam ENT Exam: Mucous Membranes Moist - Neck Exam Neck exam: Negative for: Lymphadenopathy, Meningismus - Respiratory Exam Respiratory Exam: Decreased Breath Sounds, Rales (some crackles noted on the right lung [place]) - Cardiovascular Exam Cardiovascular Exam: +S1, +S2 - GI/Abdominal Exam GI & Abdominal Exam: Soft. absent: Tenderness Results - Vital Signs Recent Vital Signs: Last Vital Signs Temp 98.7 F 07/04/16 06:00 Pulse 80 07/04/16 06:00 Resp 20 07/04/16 06:00 BP 123/58 L 07/04/16 06:00 Pulse Ox 95 07/04/16 00:01 - Labs Result Diagrams: 07/04/16 07:30 07/04/16 07:30 Labs: Laboratory Results - last 24 hr 07/03/16 07/03/16 07/03/16 14:30 15:10 18:36 pO2 39 VBG pH 7.33 VBG pCO2 51.0 VBG HCO3 26.9 VBG Total CO2 28.5 H VBG O2 Sat (Calc) 77.8 H VBG Base Excess 0.2 VBG Potassium 3.9 Sodium 140.0 Chloride 114.0 H Glucose 184 H Lactate 1.3 FiO2 21.0 Lactic Acid 1.8 Venous Blood Potassium 3.9 Influenza Typ A,B (EIA) Negative for flu a/b Assessment & Plan - Assessment and Plan (Free Text) Plan: Assessment Consider sepsis due to acute bronchitis, R/O healthcare-associated pneumonia ( subsegmental consolidations seen on CT chest) HTN DM CAD S/P PCI benign prostatic hyperplasia S/P laparoscopic cholecystectomy history of spinal stenosis Plan started patient on Vancomycin, Cefepime, Doxycycline pending blood, sputum cx, PCT; reviewed CT chest will monitor clinical response
[2016-07-04] MEDS: guaiFENesin DM 100 mg-10 mg/5 ml UD PO PRN (18:52)
--- NOTE | 2016-07-05 02:06 | CARD ---
APPROVED REPORT EKG Measurement Heart [id number] <Conclusion> Normal sinus rhythm Left bundle branch block Abnormal ECG
[2016-07-05] MEDS: Albuterol-Ipratrop 3 mg / 0.5 (3 ml) UD IH SCH ×3 (05:43→11:21)
[2016-07-05] MEDS: Pantoprazole 40 mg EC Tab PO SCH (05:47)
[2016-07-05] MEDS: Cefepime IV 2 gm in NS 2 GM/100 ML BAG IVPB SCH (05:47)
[2016-07-05] MEDS: Vancomycin 1gm in NS 250ml 1 GM/250 ML BAG IVPB SCH (05:47)
[2016-07-05] MEDS: Sodium Chloride 0.9% 1,000 ML IV SCH (05:48)
[2016-07-05] MEDS: Budesonide 0.5 mg/2 ml Inhal Susp UD IH SCH (07:50)
[2016-07-05 07:51] VITALS: BP 146/77; PULSE 80; RESP 18; TEMP 98; O2SAT 96
[2016-07-05 07:59] LABS: ADD MANUAL DIFF? NO
[2016-07-05 08:00] LABS: GRAN # 8.71 (1.4-6.5); GRAN % 88.1 % (50.0-68.0); HEMATOCRIT 34.3 % (42.0-52.0); LYMPH # 0.7 (1.2-3.4); LYMPH % 6.7 % (22.0-35.0); MEAN CELL VOLUME 89.1 fL (80.0-105.0); MEAN CORPUSCULAR HEMOGLOBIN 30.1 pg (25.0-35.0); MEAN CORPUSCULAR HGB CONC 33.8 g/dl (31.0-37.0); MEAN PLATELET VOLUME 11.1 fl (7.0-11.0); MONO # 0.5 (0.1-0.6); MONO % 5.2 % (1.0-6.0); PLATELET COUNT 181 10^3/uL (120.0-450.0); RED CELL DISTRIBUTION WIDTH 13.2 % (11.5-14.5); WHITE BLOOD COUNT 9.9 10^3/ul (4.5-11.0)
[2016-07-05 08:11] LABS: BLOOD UREA NITROGEN 18 mg/dL (7-21); CALCIUM 8.6 mg/dL (8.4-10.5); CARBON DIOXIDE 23 mmol/L (21-33); CHLORIDE 108 mmol/L (95-110); GFR AFRICAN-AMERICAN > 60; GLUCOSE,RANDOM 236 mg/dL (70-110); MAGNESIUM 1.8 mg/dL (1.7-2.2); PHOSPHOROUS 3.3 mg/dL (2.5-4.5); POTASSIUM 4.6 mmol/L (3.6-5.0); SODIUM 137 mmol/L (132-148)
--- NOTE | 2016-07-05 08:31 | PN ---
DATE: 07/05/2016 SUBJECTIVE: The patient appears very comfortable this morning. He is not short of breath at rest. PHYSICAL EXAMINATION: VITAL SIGNS: Temperature is 97.9, pulse 69, respirations 18, blood pressure 141 /64. Oxygen saturation on nasal cannula is 99%. HEENT: Normocephalic, atraumatic. No JVD. CARDIOVASCULAR: Systolic ejection murmur at the lower left sternal border. No S3 gallop. LUNGS: Improved breath sounds at the bases. Much less rhonchi. No wheezing this morning. EXTREMITIES: No clubbing, cyanosis, or edema. Calves are nontender to palpation. GASTROINTESTINAL: Abdomen is soft, nontender, nondistended. Bowel sounds are positive. SKIN: No acute rash. NEUROLOGIC: Limited at the present time. PERTINENT LABORATORY DATA: CAT scan of the chest was done and reviewed. There are some very small areas of consolidation at both lung bases. These areas could represent atelectasis or true pneumonia. IMPRESSION: 1. Acute bronchitis. 2. Chronic obstructive pulmonary disease. 3. Rule out bibasilar pneumonia. 4. Extensive coronary artery disease. 5. Mild anemia. PLAN: The patient appears very comfortable this morning. He is not short of breath at rest. He states he is feeling much, much better overall. On physical exam, his bronchospasm is significantly less. I will continue with the current nebulizer treatments and decrease the intravenous steroids this morning. I did review the CAT scan of the chest. There are some small consolidations at the lung bases. It is difficult to discern at this point in time -- whether these consolidations represent true pneumonia or not. The patient did have a procalcitonin done on 07/03/2016 -- negative. I would continue with the antibiotic coverage as per infectious disease. Input by Dr. Bennett is noted. Temperatures have fully resolved. The leukocytosis has also fully resolved. Clinical status of the patient is significantly improved -- compared to the initial presentation. I will discuss the above with the attending physician. Ilia Singh MD cc: [id number] TT: 07/05/2016 08:30:33 Confirmation # [id number] Dictation # [id number] en [facility]ANNER
[2016-07-05] MEDS: Insulin Lispro (humaLOG) LOW Coverage SC SCH ×2 (09:22→13:16)
[2016-07-05] MEDS ORDERED: MethylPREDNISolone 40 mg Vial IVP SCH (10:00)
--- NOTE | 2016-07-05 13:30 | CP.PCM.DIS ---
<DheerajSteph - Last Filed: 07/08/16 11:03> Provider - Provider Date of Admission: 07/03/16 14:27 Attending physician: James Escobar MD Primary care physician: James Escobar MD Time Spent in preparation of Discharge (in minutes): 45 Diagnosis - Discharge Diagnosis (1) Sepsis Status: Resolved (2) Acute bronchitis Status: Acute (3) HAP (hospital-acquired pneumonia) Status: Acute (4) HTN (hypertension) Status: Chronic (5) CAD (coronary artery disease) Status: Chronic Hospital Course - Lab Results Lab Results: Most Recent Lab Values WBC 9.9 10^3/ul (4.5-11.0) D 07/05/16 07:30 RBC 3.85 10^6/uL (3.5-6.1) 07/05/16 07:30 Hgb 11.6 gm/dL (14.0-18.0) L 07/05/16 07:30 Hct 34.3 % (42.0-52.0) L 07/05/16 07:30 MCV 89.1 fL (80.0-105.0) 07/05/16 07:30 MCH 30.1 pg (25.0-35.0) 07/05/16 07:30 MCHC 33.8 g/dl (31.0-37.0) 07/05/16 07:30 RDW 13.2 % (11.5-14.5) 07/05/16 07:30 Plt Count 181 10^3/uL (120.0-450.0) 07/05/16 07:30 MPV 11.1 fl (7.0-11.0) H 07/05/16 07:30 Gran % 88.1 % (50.0-68.0) H 07/05/16 07:30 Lymph % (Auto) 6.7 % (22.0-35.0) L 07/05/16 07:30 Stephens % (Auto) 5.2 % (1.0-6.0) 07/05/16 07:30 Eos % (Auto) 0.0 % (1.5-5.0) L 07/05/16 07:30 Baso % (Auto) 0.0 % (0.0-3.0) 07/05/16 07:30 Gran # 8.71 (1.4-6.5) H 07/05/16 07:30 Lymph # 0.7 (1.2-3.4) L 07/05/16 07:30 Stephens # 0.5 (0.1-0.6) 07/05/16 07:30 Eos # 0.0 (0.0-0.7) 07/05/16 07:30 Baso # 0.00 K/mm3 (0.0-2.0) 07/05/16 07:30 PT 10.5 Seconds (9.9-11.8) 07/03/16 12:30 INR 0.97 (0.93-1.08) 07/03/16 12:30 APTT 22.4 Seconds (23.7-30.8) L 07/03/16 12:30 pO2 39 mm/Hg (30-55) 07/03/16 18:36 VBG pH 7.33 (7.32-7.43) 07/03/16 18:36 VBG pCO2 51.0 (40-60) 07/03/16 18:36 VBG HCO3 26.9 mmol/l (21-28) 07/03/16 18:36 VBG Total CO2 28.5 mmol.L (22-28) H 07/03/16 18:36 VBG O2 Sat (Calc) 77.8 % (40-65) H 07/03/16 18:36 VBG Base Excess 0.2 mmol/L (0.0-2.0) 07/03/16 18:36 VBG Potassium 3.9 mmol/L (3.6-5.2) 07/03/16 18:36 Sodium 140.0 mmol/L (132-148) 07/03/16 18:36 Chloride 114.0 mmol/L (98-107) H 07/03/16 18:36 Glucose 184 mg/dl (75-110) H 07/03/16 18:36 Lactate 1.3 mmol/L (0.7-2.1) 07/03/16 18:36 FiO2 21.0 % 07/03/16 18:36 Sodium 137 mmol/L (132-148) 07/05/16 07:30 Potassium 4.6 mmol/L (3.6-5.0) 07/05/16 07:30 Chloride 108 mmol/L (95-110) 07/05/16 07:30 Carbon Dioxide 23 mmol/L (21-33) 07/05/16 07:30 Anion Gap 11 (10-20) 07/05/16 07:30 BUN 18 mg/dL (7-21) 07/05/16 07:30 Creatinine 0.7 mg/dL (0.5-1.4) 07/05/16 07:30 Est GFR ( Amer) > 60 07/05/16 07:30 Est GFR (Non-Af Amer) > 60 07/05/16 07:30 Random Glucose 236 mg/dL (70-110) H 07/05/16 07:30 Lactic Acid 2.0 mmol/L (0.7-2.1) 07/04/16 16:20 Calcium 8.6 mg/dL (8.4-10.5) 07/05/16 07:30 Phosphorus 3.3 mg/dL (2.5-4.5) 07/05/16 07:30 Magnesium 1.8 mg/dL (1.7-2.2) 07/05/16 07:30 Total Bilirubin 0.7 mg/dL (0.2-1.3) 07/03/16 12:30 AST 24 U/L (15-59) 07/03/16 12:30 ALT 35 U/L (7-56) 07/03/16 12:30 Alkaline Phosphatase 78 U/L (38-133) 07/03/16 12:30 Total Protein 6.3 g/dL (5.8-8.3) 07/03/16 12:30 Albumin 3.5 g/dL (3.0-4.8) 07/03/16 12:30 Globulin 2.8 gm/dL 07/03/16 12:30 Albumin/Globulin Ratio 1.3 (1.1-1.8) 07/03/16 12:30 Procalcitonin < 0.05 NG/ML (0.19-0.49) L 07/03/16 12:30 Venous Blood Potassium 3.9 mmol/L (3.6-5.2) 07/03/16 18:36 Urine Color Yellow (YELLOW) 07/03/16 13:00 Urine Appearance Clear (CLEAR) 07/03/16 13:00 Urine pH 6.0 (4.7-8.0) 07/03/16 13:00 Ur Specific [place] 1.010 (1.005-1.035) 07/03/16 13:00 Urine Protein Negative mg/dL (<30 mg/dL) 07/03/16 13:00 Urine Glucose (UA) >=1000 mg/dL (NEGATIVE) 07/03/16 13:00 Urine Ketones Negative mg/dL (NEGATIVE) 07/03/16 13:00 Urine Blood Negative (NEGATIVE) 07/03/16 13:00 Urine Nitrate Negative (NEGATIVE) 07/03/16 13:00 Urine Bilirubin Negative (NEGATIVE) 07/03/16 13:00 Urine Urobilinogen 0.2 E.U./dL (<1 E.U./dL) 07/03/16 13:00 Ur Leukocyte Esterase Negative Luis/uL (NEGATIVE) 07/03/16 13:00 Influenza Typ A,B (EIA) Negative for flu a/b (NEGATIVE) 07/03/16 14:30 Ur L.pneumophila Ag Negative (NEGATIVE) 07/03/16 13:00 - Hospital Course Hospital Course: Patient is a 76 y/o with pmh of CAD s/p 7 stents, htn, NIDDM2, bph and spinal stenosis presented to the ED with dry cough and heaves. Patient had mild leukocytosis, lactic acidosis, Tempmax of 102.8, chest x-ray with infiltration, and CT with consolidation in b/l lung. Code sepsis called, patient was fluid resuscitated, sarmiento cultured, and was started on broad spectrum antibiotics. Patient's lactic acid trended down. Furthermore patient had electrolytes imbalance which was repleted. Patient improved on hospital day 2, and is to be discharged with Levaquin 750 mg for 6 more days. Patient was encouraged to drink plenty of water, and rest for at least 2 more days before returning to work. - Date & Time of H&P Date of H&P: 08/03/16 Time of H&P: 15:30 Discharge Exam - Head Exam Head Exam: ATRAUMATIC, NORMAL INSPECTION, NORMOCEPHALIC - Eye Exam Eye Exam: EOMI, Normal appearance, PERRL. absent: Scleral icterus - ENT Exam ENT Exam: Mucous Membranes Moist - Neck Exam Neck exam: Normal Inspection - Respiratory Exam Respiratory Exam: Clear to PA & Lateral, NORMAL BREATHING PATTERN, UNREMARKABLE. absent: Rales, Rhonchi, Wheezes, Respiratory Distress, Stridor - Cardiovascular Exam Cardiovascular Exam: REGULAR RHYTHM, RRR, +S1, +S2. absent: Systolic Murmur - GI/Abdominal Exam GI & Abdominal Exam: Normal Bowel Sounds, Soft, Unremarkable. absent: Distended , Firm, Rigid, Tenderness - Extremities Exam Extremities exam: normal inspection - Back Exam Back exam: NORMAL INSPECTION - Neurological Exam Neurological exam: Alert, Oriented x3 - Psychiatric Exam Psychiatric exam: Normal Affect, Normal Mood - Skin Skin Exam: Dry, Intact, Normal Color, Warm Discharge Plan - Discharge Medications Prescriptions: levoFLOXacin [Levaquin] 750 mg PO DAILY #5 tab - Follow Up Plan Condition: GUARDED Disposition: HOME/ ROUTINE Patient education suggested?: Yes Instructions: Acute Bronchitis (GEN), Sepsis (ED), Sepsis (GEN) Additional Instructions: FOLLOW UP WITH DR. HENDERSON IN 2 WEEKS. TAKE MEDICATIONS PREVIOUSLY ON AT HOME. ANTIBIOTIC CALLED INTO PHARMACY BY MD. ANY DIFFICULTY BREATHING, FEVER, PRODUCTIVE COUGH REPORT TO MD OR GO TO ER. Referrals: James Escobar MD [Primary Care Provider] - <James Escobar - Last Filed: 07/08/16 16:35> Provider - Provider Date of Admission: 07/03/16 14:27 Attending physician: James Escobar MD Primary care physician: James Escobar MD Hospital Course - Lab Results Lab Results: Micro Results 07/05/16 06:00 Sputum Gram Stain - Final 07/05/16 06:00 Sputum Sputum Culture - Final Yeast Species Most Recent Lab Values WBC 9.9 10^3/ul (4.5-11.0) D 07/05/16 07:30 RBC 3.85 10^6/uL (3.5-6.1) 07/05/16 07:30 Hgb 11.6 gm/dL (14.0-18.0) L 07/05/16 07:30 Hct 34.3 % (42.0-52.0) L 07/05/16 07:30 MCV 89.1 fL (80.0-105.0) 07/05/16 07:30 MCH 30.1 pg (25.0-35.0) 07/05/16 07:30 MCHC 33.8 g/dl (31.0-37.0) 07/05/16 07:30 RDW 13.2 % (11.5-14.5) 07/05/16 07:30 Plt Count 181 10^3/uL (120.0-450.0) 07/05/16 07:30 MPV 11.1 fl (7.0-11.0) H 07/05/16 07:30 Gran % 88.1 % (50.0-68.0) H 07/05/16 07:30 Lymph % (Auto) 6.7 % (22.0-35.0) L 07/05/16 07:30 Stephens % (Auto) 5.2 % (1.0-6.0) 07/05/16 07:30 Eos % (Auto) 0.0 % (1.5-5.0) L 07/05/16 07:30 Baso % (Auto) 0.0 % (0.0-3.0) 07/05/16 07:30 Gran # 8.71 (1.4-6.5) H 07/05/16 07:30 Lymph # 0.7 (1.2-3.4) L 07/05/16 07:30 Stephens # 0.5 (0.1-0.6) 07/05/16 07:30 Eos # 0.0 (0.0-0.7) 07/05/16 07:30 Baso # 0.00 K/mm3 (0.0-2.0) 07/05/16 07:30 PT 10.5 Seconds (9.9-11.8) 07/03/16 12:30 INR 0.97 (0.93-1.08) 07/03/16 12:30 APTT 22.4 Seconds (23.7-30.8) L 07/03/16 12:30 pO2 39 mm/Hg (30-55) 07/03/16 18:36 VBG pH 7.33 (7.32-7.43) 07/03/16 18:36 VBG pCO2 51.0 (40-60) 07/03/16 18:36 VBG HCO3 26.9 mmol/l (21-28) 07/03/16 18:36 VBG Total CO2 28.5 mmol.L (22-28) H 07/03/16 18:36 VBG O2 Sat (Calc) 77.8 % (40-65) H 07/03/16 18:36 VBG Base Excess 0.2 mmol/L (0.0-2.0) 07/03/16 18:36 VBG Potassium 3.9 mmol/L (3.6-5.2) 07/03/16 18:36 Sodium 140.0 mmol/L (132-148) 07/03/16 18:36 Chloride 114.0 mmol/L (98-107) H 07/03/16 18:36 Glucose 184 mg/dl (75-110) H 07/03/16 18:36 Lactate 1.3 mmol/L (0.7-2.1) 07/03/16 18:36 FiO2 21.0 % 07/03/16 18:36 Sodium 137 mmol/L (132-148) 07/05/16 07:30 Potassium 4.6 mmol/L (3.6-5.0) 07/05/16 07:30 Chloride 108 mmol/L (95-110) 07/05/16 07:30 Carbon Dioxide 23 mmol/L (21-33) 07/05/16 07:30 Anion Gap 11 (10-20) 07/05/16 07:30 BUN 18 mg/dL (7-21) 07/05/16 07:30 Creatinine 0.7 mg/dL (0.5-1.4) 07/05/16 07:30 Est GFR ( Amer) > 60 07/05/16 07:30 Est GFR (Non-Af Amer) > 60 07/05/16 07:30 POC Glucose (mg/dL) 247 mg/dL (65-110) H 07/05/16 11:32 Random Glucose 236 mg/dL (70-110) H 07/05/16 07:30 Lactic Acid 2.0 mmol/L (0.7-2.1) 07/04/16 16:20 Calcium 8.6 mg/dL (8.4-10.5) 07/05/16 07:30 Phosphorus 3.3 mg/dL (2.5-4.5) 07/05/16 07:30 Magnesium 1.8 mg/dL (1.7-2.2) 07/05/16 07:30 Total Bilirubin 0.7 mg/dL (0.2-1.3) 07/03/16 12:30 AST 24 U/L (15-59) 07/03/16 12:30 ALT 35 U/L (7-56) 07/03/16 12:30 Alkaline Phosphatase 78 U/L (38-133) 07/03/16 12:30 Total Protein 6.3 g/dL (5.8-8.3) 07/03/16 12:30 Albumin 3.5 g/dL (3.0-4.8) 07/03/16 12:30 Globulin 2.8 gm/dL 07/03/16 12:30 Albumin/Globulin Ratio 1.3 (1.1-1.8) 07/03/16 12:30 Procalcitonin < 0.05 NG/ML (0.19-0.49) L 07/03/16 12:30 Venous Blood Potassium 3.9 mmol/L (3.6-5.2) 07/03/16 18:36 Urine Color Yellow (YELLOW) 07/03/16 13:00 Urine Appearance Clear (CLEAR) 07/03/16 13:00 Urine pH 6.0 (4.7-8.0) 07/03/16 13:00 Ur Specific [place] 1.010 (1.005-1.035) 07/03/16 13:00 Urine Protein Negative mg/dL (<30 mg/dL) 07/03/16 13:00 Urine Glucose (UA) >=1000 mg/dL (NEGATIVE) 07/03/16 13:00 Urine Ketones Negative mg/dL (NEGATIVE) 07/03/16 13:00 Urine Blood Negative (NEGATIVE) 07/03/16 13:00 Urine Nitrate Negative (NEGATIVE) 07/03/16 13:00 Urine Bilirubin Negative (NEGATIVE) 07/03/16 13:00 Urine Urobilinogen 0.2 E.U./dL (<1 E.U./dL) 07/03/16 13:00 Ur Leukocyte Esterase Negative Luis/uL (NEGATIVE) 07/03/16 13:00 Influenza Typ A,B (EIA) Negative for flu a/b (NEGATIVE) 07/03/16 14:30 Ur L.pneumophila Ag Negative (NEGATIVE) 07/03/16 13:00 Mycoplasma pneumon IgG 1.87 (<=0.90) H 07/03/16 15:10 Mycoplasma pneumon IgM 0 U/mL (<770) 07/03/16 15:10 Attending/Attestation - Attestation I have personally seen and examined this patient.: Yes I have fully participated in the care of the patient.: Yes I have reviewed all pertinent clinical information, including history, physical exam and plan: Yes Notes (Text): 07/08/16 16:35 Medical record note made by the resident after discussion with my direction and input after the patient was personally seen and examined by me. I have reviewed the chart and agree that the record accurately reflects by personal performance of the history, physical exam, data review, and medical decision-making, in the course for the patient. I have also personally directed the plan of care.
--- NOTE | 2016-07-05 17:07 | CP.PCM.PN ---
Subjective - Date & Time of Evaluation Date of Evaluation: 07/05/16 Time of Evaluation: 11:05 - Subjective Subjective: Comfortable, not in distress, breathing better, no fevers overnight, no nausea, much improved cough. Objective - Vital Signs/Intake and Output Vital Signs (last 24 hours): Temp Pulse Resp BP Pulse Ox 98 F 80 18 146/77 96 07/05/16 07:50 07/05/16 07:50 07/05/16 07:50 07/05/16 07:50 07/05/16 07:50 Intake and Output: 07/05/16 07/05/16 06:59 18:59 Intake Total 3300 Balance 3300 - Medications Medications: Current Medications Acetaminophen (Tylenol 325mg Tab) 650 mg PO Q4 PRN PRN Reason: Fever >100.4 F Albuterol/Ipratropium (Duoneb 3 Mg/0.5 Mg (3 Ml) Ud) 3 ml IH [id number] PENDING SALE TO [facility] Last Admin: 07/05/16 07:50 Dose: 3 ml Albuterol/Ipratropium (Duoneb 3 Mg/0.5 Mg (3 Ml) Ud) 3 ml IH Q2H PRN PRN Reason: Shortness of Breath Aspirin (Ecotrin) 81 mg PO DAILY PENDING SALE TO [facility] Last Admin: 07/04/16 09:05 Dose: 81 mg Atenolol (Tenormin) 50 mg PO QAM PENDING SALE TO [facility] Last Admin: 07/04/16 09:05 Dose: 50 mg Atenolol (Tenormin) 50 mg PO HS PENDING SALE TO [facility] Last Admin: 07/04/16 21:19 Dose: 50 mg Atorvastatin Calcium (Lipitor) 80 mg PO QPM PENDING SALE TO [facility] Last Admin: 07/04/16 18:52 Dose: 80 mg Benzonatate (Tessalon Perles) 100 mg PO TID PENDING SALE TO [facility] Last Admin: 07/04/16 18:52 Dose: 100 mg Budesonide (Pulmicort Respules) 0.5 mg IH [id number] PENDING SALE TO [facility] Last Admin: 07/05/16 07:50 Dose: 0.5 mg Doxycycline Hyclate (Doryx) 100 mg PO Q12 ARLENE PRN Reason: Protocol Last Admin: 07/04/16 21:16 Dose: 100 mg Duloxetine HCl (Cymbalta) 30 mg PO DAILY PENDING SALE TO [facility] Last Admin: 07/04/16 09:05 Dose: 30 mg Guaifenesin/Dextromethorphan (Robitussin Dm) 5 ml PO Q4H PRN PRN Reason: Cough Last Admin: 07/04/16 18:52 Dose: 5 ml Heparin Sodium (Porcine) (Heparin) 5,000 units SC Q8 ARLENE PRN Reason: Protocol Last Admin: 07/05/16 05:47 Dose: 5,000 units Hydrochlorothiazide (Microzide) 12.5 mg PO STAT PENDING SALE TO [facility] Last Admin: 07/04/16 16:56 Dose: Not Given Cefepime HCl (Maxipime 2gm) 2 gm in 100 mls @ 100 mls/hr IVPB Q8 ARLENE PRN Reason: Protocol Stop: 07/09/16 06:46 Last Admin: 07/05/16 05:47 Dose: 100 mls/hr Insulin Human Lispro (Humalog Low) 0 units SC ACHS ARLENE PRN Reason: Protocol Last Admin: 07/04/16 21:58 Dose: Not Given Isosorbide Mononitrate (Imdur) 60 mg PO QAM PENDING SALE TO [facility] Last Admin: 07/04/16 09:04 Dose: 60 mg Losartan Potassium (Cozaar) 50 mg PO STAT PENDING SALE TO [facility] Last Admin: 07/04/16 09:04 Dose: 50 mg Methylprednisolone (Solu-Medrol) 20 mg IVP Q12 PENDING SALE TO [facility] Ondansetron HCl (Zofran Inj) 4 mg IVP STAT PRN PRN Reason: Nausea/Vomiting Pantoprazole Sodium (Protonix Ec Tab) 40 mg PO 0630 PENDING SALE TO [facility] Last Admin: 07/05/16 05:47 Dose: 40 mg - Labs Labs: 07/05/16 07:30 07/05/16 07:30 PT 10.5 Seconds (9.9-11.8) 07/03/16 12:30 INR 0.97 (0.93-1.08) 07/03/16 12:30 APTT 22.4 Seconds (23.7-30.8) L 07/03/16 12:30 - Constitutional Appears: Non-toxic, No Acute Distress - Head Exam Head Exam: NORMAL INSPECTION - ENT Exam ENT Exam: Mucous Membranes Moist - Neck Exam Neck Exam: absent: Lymphadenopathy, Meningismus - Respiratory Exam Respiratory Exam: Decreased Breath Sounds - Cardiovascular Exam Cardiovascular Exam: +S1, +S2 - GI/Abdominal Exam GI & Abdominal Exam: Soft. absent: Tenderness Assessment and Plan - Assessment and Plan (Free Text) Plan: Assessment Consider sepsis due to acute bronchitis, unlikely healthcare-associated pneumonia even with subsegmental consolidations since PCT is <0.05 HTN DM CAD S/P PCI benign prostatic hyperplasia S/P laparoscopic cholecystectomy history of spinal stenosis Plan on Vancomycin, Cefepime and Doxycycline day 2; can be switched to PO Doxycycline when ready for discharge - discussed with Dr. Singh
== END 2016-07-05 15:00 | disposition home or self-care (01) | DRG 871 ==
LOC: ED 11:54 → ERH 14:27 → 2RNO 15:44 → 3RNO 07-04 14:05
PROVIDERS: ADMIT Internal Medicine; ATTEND Internal Medicine
DX: A41.9 Sepsis, unspecified organism (principal); J18.9 Pneumonia, unspecified organism; J44.0 Chronic obstructive pulmonary disease with (acute) lower respiratory infection; J20.9 Acute bronchitis, unspecified; E11.40 Type 2 diabetes mellitus with diabetic neuropathy, unspecified; D64.9 Anemia, unspecified; I10 Essential (primary) hypertension; I25.10 Atherosclerotic heart disease of native coronary artery without angina pectoris; N40.0 Benign prostatic hyperplasia without lower urinary tract symptoms; E83.42 Hypomagnesemia; M48.00 Spinal stenosis, site unspecified; E83.39 Other disorders of phosphorus metabolism; Y95 Nosocomial condition; Z95.5 Presence of coronary angioplasty implant and graft; Z87.891 Personal history of nicotine dependence; Z79.84 Long term (current) use of oral hypoglycemic drugs; Z79.82 Long term (current) use of aspirin

== ENCOUNTER 2017-05-29 10:16 | Emergency (ER) | payer MEDICARE, BC ==
[2017-05-29 11:01] VITALS: BMI 23.0
--- NOTE | 2017-05-29 12:06 | ED PDOC ---
Arrival/HPI - General Chief Complaint: GI Problem Time Seen by Provider: 05/29/17 10:58 Historian: Patient - History of Present Illness Narrative History of Present Illness (Text): 05/29/17 12:03 A 76 year old male, whose past medical history includes diabetes, hypertension, hyperlipidemia, and cardiac bypass with stents, presents to the emergency department complaining of non-bloody diarrhea for 1 week. Patient notes taking Pepto Bismol, with no relief. He reports 2 episodes of non-bilious non-bloody vomiting this morning, which caused him to come in today for further evaluation. Patient denies any fever, chills, nausea, abdominal pain, back pain , urinary symptoms, rectal bleeding, chest pain, shortness of breath or any other complaints. PMD: Dr. Moura Time/Duration: 1 week Symptom Course: Unchanged Context: Home Past Medical History - Provider Review Nursing Documentation Reviewed: Yes - Cardiac Hx Hypertension: Yes - Pulmonary Hx Chronic Obstructive Pulmonary Disease (COPD): Yes - Neurological Hx Neurological Disorder: No Hx Paralysis: No - HEENT Hx HEENT Disorder: No - Renal Hx Renal Disorder: No - Endocrine/Metabolic Hx Diabetes Mellitus Type 2: Yes Other/Comment: Neuropathy - Hematological/Oncological Hx Blood Transfusions: Yes (1986) Hx Blood Transfusion Reaction: No - Integumentary Hx Dermatological Disorder: Yes (LESION LEFT TEMPORAL AREA) - Musculoskeletal/Rheumatological Hx Musculoskeletal Disorders: Yes (LOWER BACK PINCHED NERVE) - Gastrointestinal Hx Gastrointestinal Disorders: No - Genitourinary/Gynecological Hx Prostate Problems: Yes - Psychiatric Hx Psychophysiologic Disorder: No Hx Emotional Abuse: No Hx Physical Abuse: No Hx Substance Use: No - Surgical History Hx Cholecystectomy: Yes Hx Coronary Artery Bypass Graft: Yes Hx Open Heart Surgery: Yes - Anesthesia Hx Anesthesia: Yes - Suicidal Assessment Feels Threatened In Home Enviroment: No Family/Social History - Physician Review Nursing Documentation Reviewed: Yes Family/Social History: No Known Family HX Smoking Status: Former Smoker Hx Alcohol Use: No Hx Substance Use: No Allergies/Home Meds Allergies/Adverse Reactions: Allergies No Known Allergies Allergy (Verified 05/29/17 10:58) Home Medications: Home Meds Medication Instructions Recorded Confirmed Atorvastatin [Lipitor] 80 mg PO QPM 02/01/14 05/29/17 Aspirin [Ecotrin] 81 mg PO DAILY 05/19/15 05/29/17 Atenolol [Tenormin] 1 tab PO HS 05/19/15 05/29/17 Atenolol [Tenormin] 50 mg PO QAM 05/19/15 05/29/17 DULoxetine [Cymbalta] 30 mg PO DAILY 05/19/15 05/29/17 Glimepiride 1 mg PO DAILY PRN 05/19/15 05/29/17 Isosorbide Mononitrate [Imdur] 60 mg PO QAM 05/19/15 05/29/17 Saxagliptin HCl/Metformin HCl 1 tab PO DAILY 05/19/15 05/29/17 [Kombiglyze Xr 2.5-1,000 mg Tab] Telmisartan [Micardis] 80 mg PO QAM 05/19/15 05/29/17 Review of Systems - Physician Review All systems were reviewed & negative as marked: Yes - Review of Systems Constitutional: absent: Fevers, Night Sweats Respiratory: absent: SOB Cardiovascular: absent: Chest Pain Gastrointestinal: Diarrhea, Vomiting. absent: Abdominal Pain, Nausea, Hematochezia Genitourinary Male: absent: Dysuria, Frequency, Hematuria Musculoskeletal: absent: Back Pain Physical Exam Vital Signs Reviewed: Yes Vital Signs Temp Pulse Resp BP Pulse Ox 05/29/17 14:35 98.4 F 73 19 99 05/29/17 13:19 69 18 115/59 L 96 05/29/17 11:00 97.9 F 73 18 113/54 L 96 Temperature: Afebrile Blood Pressure: Hypotensive Pulse: Regular Respiratory Rate: Normal Appearance: Positive for: Well-Appearing, Non-Toxic, Comfortable Pain Distress: None Mental Status: Positive for: Alert and Oriented X 3 - Systems Exam Head: Present: Atraumatic, Normocephalic Pupils: Present: PERRL Extroacular Muscles: Present: EOMI Conjunctiva: Present: Normal Mouth: Present: Moist Mucous Membranes Neck: Present: Normal Range of Motion Respiratory/Chest: Present: Clear to Auscultation, Good Air Exchange. No: Respiratory Distress, Accessory Muscle Use Cardiovascular: Present: Regular Rate and Rhythm, Normal S1, S2. No: Murmurs Abdomen: No: Tenderness, Distention, Peritoneal Signs, Guarding Back: Present: Normal Inspection Upper Extremity: Present: Normal Inspection. No: Cyanosis, Edema Lower Extremity: Present: Normal Inspection. No: Edema Neurological: Present: GCS=15, CN II-XII Intact, Speech Normal Skin: Present: Warm, Dry, Normal Color. No: Rashes Psychiatric: Present: Alert, Oriented x 3, Normal Insight, Normal Concentration Medical Decision Making ED Course and Treatment: 05/29/17 12:03 Impression: A 76 year old male with diarrhea Differential Diagnosis included but are not limited to: Gastroenteritis Plan: -- Labs -- Reassess and disposition Progress Notes: Patient's lipase mildly elevated. Hydrated with IVF. Patient is tolerating PO fluids. He has no abdmominal pain. One loose stool in ED. He feels comfortable going home and will follow up with his PMD in 1-2days. Advised to return to the ED if symptoms worsen or any other concern. - Lab Interpretations Lab Results: 05/29/17 12:10 05/29/17 12:10 Lab Results 05/29/17 12:10: Sodium 142, Potassium 3.7, Chloride 107, Carbon Dioxide 23, Anion Gap 15, BUN 17, Creatinine 0.7 L, Est GFR ( Amer) > 60, Est GFR ( Non-Af Amer) > 60, Random Glucose 141 H, Calcium 9.4, Total Bilirubin 0.6, AST 29, ALT 36, Alkaline Phosphatase 75, Total Protein 6.3, Albumin 3.8, Globulin 2.5, Albumin/Globulin Ratio 1.5, Lipase 745 H 05/29/17 12:10: WBC 11.5 H, RBC 4.63, Hgb 13.7 L, Hct 40.5 L, MCV 87.5, MCH 29.6 , MCHC 33.8, RDW 14.1, Plt Count 265, MPV 11.5 H, Gran % 79.1 H, Lymph % (Auto) 10.5 L, Webb % (Auto) 8.8 H, Eos % (Auto) 1.4 L, Baso % (Auto) 0.2, Gran # 9.11 H, Lymph # (Auto) 1.2, Webb # (Auto) 1.0 H, Eos # (Auto) 0.2, Baso # (Auto) 0.02 I have reviewed the lab results: Yes - Medication Orders Current Medication Orders: Discontinued Medications Sodium Chloride (Sodium Chloride 0.9%) 1,000 mls @ 999 mls/hr IV .Q1H1M STA Stop: 05/29/17 13:24 Last Admin: 05/29/17 13:41 Dose: 999 mls/hr eMAR Start Stop Document 05/29/17 13:41 [email or web address] (Rec: 05/29/17 13:43 [email or web address]) Intravenous Solution Start Date 05/29/17 Start Time 13:43 End Date 05/29/17 - Scribe Statement The provider has reviewed the documentation as recorded by the Madina Ponce Provider Scribe Attestation: All medical record entries made by the Scribe were at my direction and personally dictated by me. I have reviewed the chart and agree that the record accurately reflects my personal performance of the history, physical exam, medical decision making, and the department course for this patient. I have also personally directed, reviewed, and agree with the discharge instructions and disposition. Disposition/Present on Arrival - Present on Arrival Any Indicators Present on Arrival: No History of DVT/PE: No History of Uncontrolled Diabetes: No Urinary Catheter: No History of Decub. Ulcer: No History Surgical Site Infection Following: None - Disposition Have Diagnosis and Disposition been Completed?: Yes Diagnosis: Gastroenteritis, Pancreatitis Disposition: HOME/ ROUTINE Disposition Time: 14:30 Patient Plan: Discharge Condition: IMPROVED Discharge Instructions (ExitCare): Pancreatitis, Gastroenteritis (ED) Additional Instructions: Ms Downing thank you for letting us take care of you today. Your provider was Dr. Tai. You were treated for Gastroenteritis, Pancreatis. The emergency medical care you received today was directed at your acute symptoms. If you were prescribed any medication, please fill it and take as directed. It may take several days for your symptoms to resolve. Return to the Emergency Department if your symptoms worsen, do not improve, or if you have any other problems. Please contact your doctor or call one of the physicians/clinics you have been referred to that are listed on the Patient Visit Information form that is included in your discharge packet. Bring any paperwork you were given at discharge with you along with any medications you are taking to your follow up visit. Our treatment cannot replace ongoing medical care by a primary care provider (PCP) outside of the emergency department. Thank you for allowing the [facility] team to be part of your care today. If you had an X-Ray or CT scan: A Radiologist will review the ED reading if any change in treatment is needed we will contact you. If you had a blood, urine, or wound culture: It will take several days for the results, if any change in treatment is needed we will contact you. If you had an STI test: It will take 48 hours for the results. Please call after 1 week if you have not heard back. Referrals: Trev Moura MD [Primary Care Provider] - Follow up with primary Forms: [employer] (Turkmen)
[2017-05-29 12:23] LABS: BASO # 0.02 K/mm3 (0.0-2.0); BASO % 0.2 % (0.0-3.0); EOS # 0.2 (0.0-0.7); EOS % 1.4 % (1.5-5.0); GRAN # 9.11 (1.4-6.5); GRAN % 79.1 % (50.0-68.0); HEMOGLOBIN 13.7 g/dL (14.0-18.0); LYMPH # 1.2 (1.2-3.4); LYMPH % 10.5 % (22.0-35.0); MEAN CELL VOLUME 87.5 fl (80.0-105.0); MEAN CORPUSCULAR HEMOGLOBIN 29.6 pg (25.0-35.0); MEAN CORPUSCULAR HGB CONC 33.8 g/dl (31.0-37.0); MEAN PLATELET VOLUME 11.5 fl (7.0-11.0); MONO % 8.8 % (1.0-6.0); RBC 4.63 10^6/uL (3.5-6.1); RED CELL DISTRIBUTION WIDTH 14.1 % (11.5-14.5); WHITE BLOOD COUNT 11.5 10^3/ul (4.5-11.0)
[2017-05-29] MEDS ORDERED: Sodium Chloride 0.9% 1,000 ML IV STA (12:24)
[2017-05-29 12:34] LABS: ALB/GLOB RATIO 1.5 (1.1-1.8); ALBUMIN 3.8 g/dL (3.0-4.8); ALT/SGPT 36 U/L (7-56); AST/SGOT 29 U/L (17-59); BLOOD UREA NITROGEN 17 mg/dL (7-21); CALCIUM 9.4 mg/dL (8.4-10.5); GFR AFRICAN-AMERICAN > 60; GFR NON-AFRICAN AMERICAN > 60; LIPASE 745 U/L (23-300)
[2017-05-29 13:20] VITALS: BP 115/59
[2017-05-29 14:36] VITALS: PULSE 73; RESP 19; TEMP 98.4; O2SAT 99
== END 2017-05-29 14:37 | disposition home or self-care (01) ==
LOC: ED 10:16
DX: K52.9 Noninfective gastroenteritis and colitis, unspecified (principal); K85.90 Acute pancreatitis without necrosis or infection, unspecified
CPT/HCPCS: 80053; 83690; 85025; 99283; J7040

== ENCOUNTER 2018-03-23 09:33 | Outpatient (CLI) | payer MEDICARE, BC | END 2018-03-23 09:34 | disposition home or self-care (01) | LOC: RAD 09:33 ==